=== PATIENT | male | born 1985 | race Caucasian/White ===

== ENCOUNTER 2023-11-01 20:51 | Emergency (ER) | payer OTHER, SELFPAY ==
[2023-11-01] VITALS (19 sets, daily range): BP systolic 101–113; BP diastolic 73–84; PULSE 60–81; RESP 13–20; TEMP 36.4; O2SAT 97–100
--- NOTE | ~2023-11-01 | CT_ITS ---
EXAMINATION: CT brain wo con DATE: 11/01/2023 22:43 INDICATION: Syncope TECHNIQUE: Computed tomography (CT) of the head was performed without intravenous contrast. The mA wa s adjusted according to patient size. Iterative reconstruction technique was employed. Exam dose: 60 5.33 mGy-cm total exam DLP. COMPARISON: None FINDINGS: Bilateral carotid siphon internal carotid artery calcifications are noted. No intracranial mass lesion or hemorrhage or cerebrovascular accident is detected. No midline shift o r mass effect. Normal ventricular size. Arita-white matter differentiation is normal. No subdural or epidural hematoma. Included paranasal sinuses and mastoid air cells are normally developed and aerated. No skull fracture or bone destruction is detected. IMPRESSION: Bilateral carotid siphon internal carotid artery calcifications; no other significant in tracranial abnormality Reviewed, dictated and finalized at Location [facility]. Reviewed, dictated and finalized at location A. ER OFF IMPRESSION: Bilateral carotid siphon internal carotid artery calcifications; n o other significant intracranial abnormality
--- NOTE | ~2023-11-01 | XR_ITS ---
EXAMINATION: XR chest 1V portable Exam Date/Time: 11/01/2023 21:35 DATA MANAGEMENT MANAGER HISTORY: cough Comparison: None. RESULT: Lines, tubes, and devices: None. Lungs and pleura: Clear. Cardiomediastinal silhouette: Unremarkable. Other: No acute osseous or upper abdominal finding. IMPRESSION: No acute cardiopulmonary process. Reviewed, dictated and finalized at location K. MANAGEMENT MANAGER
--- NOTE | 2023-11-01 20:56 | ECG_ITS ---
Measurements Intervals [place] Rate: 71 P: 47 MA: 176 QRS: 38 QRSD: 105 T: 36 QT: 348 QTc: 379 Interpretive Statements SINUS RHYTHM WITH SINUS ARRHYTHMIA INCOMPLETE RIGHT BUNDLE BRANCH BLOCK BASELINE ARTIFACT- V3 BORDERLINE ECG NO PREVIOUS ECG AVAILABLE FOR COMPARISON Electronically Signed On 11-02-2023 7:57:43 MAMMOGRAPHY TECHNOLOGIST by Leonidas Reyez D.O.
[2023-11-01] MEDS: SODIUM CHLORIDE 0.9% IV 1,000 ML 999 ML IV CONT (21:36)
[2023-11-01 21:48] LABS: Hematocrit 47.5 % (42.0-52.0); Hemoglobin 15.5 g/dL (14.0-18.0); Mean Corpuscular HGB Conc 32.6 g/dl (32-36); Mean Corpuscular Hemoglobin 29.4 pg (26-34); Mean Platelet Volume 10.4 fl (7.4-10.4); Platelet Count Result 150 k/mm3 (150-375); Red Blood Count 5.28 M/mm3 (4.6-6.20); Red Cell Distribution Width 14.1 % (11.5-14.5); White Blood Count 6.3 K/mm3 (4.5-10.0)
[2023-11-01 21:58] LABS: Prothrombin Time 13.1 Seconds (11.1-14.7)
[2023-11-01 21:59] LABS: Partial Thromboplastin Time 33.6 SECONDS (22.3-36.8)
[2023-11-01 22:00] LABS: Alanine Aminotransferase 31 U/L (6-50); Albumin Level 4.5 g/dL (3.5-5.1); Alkaline Phosphatase 83 U/L (38-126); Anion Gap 9 mmol/L (8-16); Aspartate Amino Transferase 28 U/L (17-59); Bilirubin,Total 0.5 mg/dL (0.2-1.3); Blood Urea Nitrogen 13 mg/dL (9-20); Calcium 9.1 mg/dL (8.4-10.2); Carbon Dioxide 26 mmol/L (22-30); Chloride 101 mmol/L (98-107); Estimated CRCL calculation 93 ml/min; Estimated Glomerular Filt Rate > 60; Glucose 102 mg/dL (65-110); Lactic Acid Reflex 0.9 mmol/L (0.7-2.0); Potassium 3.4 mmol/L (3.4-5.0); Sodium 136 mmol/L (137-145)
[2023-11-01 22:03] LABS: Appearance Urine Cloudy (Clear); Bacteria Urine None Seen /hpf; Bilirubin Urine Negative (Negative); Blood Urine Negative (Negative); Color Urine Dark Yellow (Yellow); Glucose Urine UA Negative (Negative); Hyaline Casts Urine Present /lpf; Ketones Urine 1+ mg/dL (Negative); Leukocyte Esterase Ur Negative LEU/UL (Negative); Nitrate Urine Negative (Negative); Protein Urine 2+ mg/dL (Negative); RBC Urine 0-2 /hpf (0-2); Specific Grav Ur 1.033 (1.001-1.035); Squamous Epithelial Cell Urine None seen /hpf (Few); WBC Urine 0-5 /hpf; pH Urine 5.5 (5.0-9.0)
[2023-11-01 22:04] LABS: Add Urine Microscopic? YES
[2023-11-01 22:07] LABS: Influenza A QL RT-PCR Negative (Negative); Influenza B QL RT-PCR Negative (Negative); RSV RNA, RT-PCR Negative (Negative); SARS-CoV-2 RNA PCR Positive (Negative)
[2023-11-01 22:16] LABS: Troponin I < 0.012 ng/mL (0.000-0.034)
[2023-11-01 22:19] LABS: Band Neutrophils Percent 6 % (0-6); Lymphocytes Absolute Manual 1.38 K/mm3 (1.1-4.5); Monocytes Absolute Manual 1.26 K/mm3 (0.1-0.90); Monocytes Percent Manual 20 % (3-9); Neutrophils Absolute Manual 3.65 K/mm3 (1.3-6.7); Neutrophils Percent Manual 52 % (46-73); Platelet Estimate Adequate (Adequate); Total Cells Counted 100
[2023-11-01 22:20] LABS: Schistocytes None Seen (NORMAL)
[2023-11-01 22:23] LABS: Procalcitonin 0.1 ng/mL
[2023-11-01 22:25] LABS: D Dimer 0.36 ug/mL (<0.48)
--- NOTE | 2023-11-01 23:04 | ED.GENADULT ---
HPI - General Adult General Chief complaint: Seizure Stated complaint: Seizure Time Seen by Provider: 11/01/23 21:10 History of Present Illness HPI narrative: patient is a 38-year-old gentleman who presents emergency department with chief complaint of syncopal episode. Patient reports that he is been not feeling well since yesterday and reports that he had a fever body aches patient reports that he feels as though he has a viral illness. Patient reports that his was sick fairly recently. The patient states that he has not really been eating and drinking well for the last 24 hours and reports that he was walking laid on the bed and briefly passed out. Family reports no bowel or bladder dysfunction reports no generalized shaking Related Data Allergies Allergy/AdvReac Type Severity Reaction Status Date / Time No Known Allergies Allergy Verified 11/01/23 21:03 Review of Systems Review of Systems: A 10 system review of systems was completed on the patient and is negative except for what is stated in the HPI. Nursing and ancillary documentation was reviewed. Exam Narrative: GENERAL: Well-appearing, well-nourished, and in no acute distress. HEAD: Normocephalic, atraumatic. EYES: PERRLA and EOMI. ENT: Nares clear, no rhinorrhea or epistaxis. Mucous membranes moist. NECK: Supple. CHEST: Clear to auscultation. No respiratory distress. HEART: Regular rate and rhythm. No murmur heard. Normal peripheral pulses. ABDOMEN: Soft, nontender, nondistended, normal active bowel sounds. EXTREMITIES: Normal range of motion. No edema. SKIN: Warm, dry, no rash. NEURO: No focal deficits. Alert and oriented x3. PSYCH: Normal mood and affect. Course Vital Signs Vital signs: Vital Signs Temperature 36.4 C 11/01/23 20:48 Pulse Rate 60 11/01/23 20:48 Respiratory Rate 13 11/01/23 20:48 Blood Pressure 113/78 11/01/23 20:48 Pulse Oximetry 100 11/01/23 20:48 Oxygen Delivery Room Air 11/01/23 20:48 Temperature 36.4 C 11/01/23 20:48 Pulse Rate 78 11/01/23 22:16 Respiratory Rate 18 11/01/23 22:16 Blood Pressure 101/73 11/01/23 22:16 Pulse Oximetry 97 11/01/23 21:34 Oxygen Delivery Room Air 11/01/23 21:04 Medical Decision Making MDM Narrative Medical decision making narrative: Differential diagnosis includes viral syndrome, syncopal episode, pulmonary embolism, UTI laboratory studies were obtained the patient was positive COVID-19 urinalysis showed +1 ketones electrolytes are within normal limits EKG showed no acute ischemic changes. Chest x-ray showed no focal infiltrate patient has a negative troponin negative D-dimer CT head showed no acute abnormality Vital Signs Vital Signs: Vital Signs Temperature 36.4 C 11/01/23 20:48 Pulse Rate 60 11/01/23 20:48 Respiratory Rate 13 11/01/23 20:48 Blood Pressure 113/78 11/01/23 20:48 Pulse Oximetry 100 11/01/23 20:48 Oxygen Delivery Room Air 11/01/23 20:48 Temperature 36.4 C 11/01/23 20:48 Pulse Rate 78 11/01/23 22:16 Respiratory Rate 18 11/01/23 22:16 Blood Pressure 101/73 11/01/23 22:16 Pulse Oximetry 97 11/01/23 21:34 Oxygen Delivery Room Air 11/01/23 21:04 Lab Data 11/01/23 21:42 11/01/23 21:42 Labs: Lab Results 11/01/23 11/01/23 11/01/23 Range/Units 21:27 21:42 21:47 WBC 6.3 (4.5-10.0) K/mm3 RBC 5.28 (4.6-6.20) M/mm3 Hgb 15.5 (14.0-18.0) g/dL Hct 47.5 (42.0-52.0) % MCV 90.0 (80-100) fl MCH 29.4 (26-34) pg MCHC 32.6 (32-36) g/dl RDW 14.1 (11.5-14.5) % Plt Count 150 (150-375) k/mm3 MPV 10.4 (7.4-10.4) fl Immature Gran % (Auto) Not Reportable Neut % (Auto) Not Reportable Lymph % (Auto) Not Reportable [place] % (Auto) Not Reportable Eos % (Auto) Not Reportable Baso % (Auto) Not Reportable Lymph # (Auto) Not Reportable [place] # (Auto) Not Reporta
== END 2023-11-02 00:22 | disposition home or self-care (01) ==
PROVIDERS: Emergency Provider Emergency Medicine
DX: U07.1 COVID-19 (principal); R55 Syncope and collapse; Z20.822 Contact with and (suspected) exposure to COVID-19
CPT/HCPCS: 36415; 70450; 71045; 80053; 81001; 83605; 83735; 84145; 84484; 85025; 85380; 85610; 85730; 87637; 93005; 96360; 99284; J7030

== ENCOUNTER 2025-06-17 09:59 | Emergency (ER) | payer OTHER, SELFPAY ==
--- NOTE | ~2025-06-17 | XR_ITS ---
EXAM/PROCEDURE: XR chest 2V - 06/17/2025 10:16 CDT HISTORY: 40 years old Male with cough SOB x 4 days and right chest pain TECHNIQUE: Two view(s) of the chest. COMPARISON: None available. FINDINGS: LUNGS/ PLEURA: No focal consolidation. Mild perihilar bronchial wall thickening. HEART/ MEDIASTINUM: Heart appears normal in size. BONES: No acute osseous abnormality. OTHER: Visualized upper abdomen is unremarkable. IMPRESSION: No focal consolidation. Mild perihilar bronchial wall thickening, findings suggestive of respiratory bronchiolitis. Reviewed, dictated and finalized at location N. IMPRESSION: No focal consolidation. Mild perihilar bronchial wall thickening, findings sugg estive of respiratory bronchiolitis.
--- NOTE | 2025-06-17 10:01 | ED.CHESTPAIN ---
HPI - Chest Pain General Chief Complaint: Upper Respiratory Infection Stated Complaint: Chest Pain/Side pain Time Seen by Provider: 06/17/25 10:05 Source: patient, RN notes reviewed and old records reviewed Mode of arrival: ambulatory Limitations: no limitations History of Present Illness HPI narrative: 40 year male presents to the [facility] with complaints of cough sneezing sore throat, stuffy nose. Denies fevers. Reports that he has a been more tired than normal. States that a family member he was around last week was also sick with an infection, got better in just a couple of days. No treatment prior to arrival Treatment prior to arrival: none Related Data Allergies Allergy/AdvReac Type Severity Reaction Status Date / Time No Known Allergies Allergy Verified 06/17/25 10:10 Review of Systems Review of Systems: All systems reviewed & are unremarkable except as noted in HPI and below Constitutional: Constitutional: Reports as per HPI ENT: Reports as per HPI Cardiovascular: Cardiovascular: Reports no additional cardiovascular complaints, Denies chest pain and Denies dyspnea Respiratory: Respiratory: Reports no additional respiratory complaints, Denies chest congestion, Denies cough and Denies dyspnea Musculoskeletal: Musculoskeletal: Reports no additional musculoskeletal complaints Integumentary/Breasts: Skin/Breast: Reports system reviewed and no additional complaints, except as docu PMFSH Comments At the time of my signature, I reviewed and agree with the nursing past medical, surgical, social, and family history. There is no relevant family history pertinent to the patient complaint. Exam Const: General: cooperative, healthy appearing, comfortable, no acute distress, well developed, alert and well nourished Nutritional Appearance: well nourished Orientation/consciousness: patient oriented x3 Limitations: no limitations HENMT: Head: normal to inspection Ears: hearing grossly normal bilaterally, external ears normal, TM's normal bilaterally, EAC's normal, mastoids normal and no periauricular adenopathy Mouth: Yes Normal oral and palatal mucosa present, Yes lip normal, Yes tongue normal and Yes moist mucous membranes Throat: posterior oropharynx normal, uvula midline and no uvular edema Eyes: General: appearance normal, both eyes and all related structures Alignment and Position: alignment normal Neck: Neck: normal visual inspection, full ROM, no lymphadenopathy and no meningeal signs Chest: Chest palpation & inspection: normal inspection of the chest Resp: Effort & Inspection: normal respiratory effort and able to speak in complete sentences Auscultation: clear to auscultation bilaterally, no crackles, no rales, no rhonchi and no wheezes Cardio: Rate: regular rate Skin: General skin exam: normal color and no rashes or lesions noted Neuro: General: patient oriented x3, gait normal, moves all extremities and no meningeal signs Cognition (Neuro): normal cognition Speech: normal speech Gait exam (Neuro): Normal gait present Extrem: General: normal to inspection, full ROM, capillary refill normal and normal gait Psych: Appearance: grossly normal and well kempt Mental Status: mental status grossly normal Speech and movement: Normal speech and movement present and Clear speech present Affect: normal affect Attitude: cooperative Course Course Level of Care: Express Care Visit Vital Signs Vital signs: Vital Signs Temperature 97.5 F L 06/17/25 10:06 Pulse Rate 78 06/17/25 10:06 Respiratory Rate 18 06/17/25 10:06 Blood Pressure 107/80 06/17/25 10:06 Pulse Oximetry 99 06/17/25 10:06 Oxygen Delivery Room Air 06/17/25 10:06 Temperature 97.5 F L 06/17/25 10:06 Pulse Rate 78 06/17/25 10:06 Respiratory Rate 18 06/17/25 10:06 Blood Pressure 107/80 06/17/25 10:06 Pulse Oximetry 99 06/17/25 10:06 Oxygen Delivery Room Air 06/17/25 10:06 Reviewed MDM - Chest Pain MDM Narrative Medical decision making narrative: Patient sitting in exam. Patient is nontoxic, vitals stable. Patient presents with 4 day history of URI symptoms, concern for cough and right-sided chest discomfort that is been intermittent. Flu, COVID and strep were negative. Chest x-ray showed no signs of a pneumonia, bronchitis is probably noted Patient is appropriate for outpatient treatment with close follow-up, phone numbers for primary care and stressed the importance of following up with patient. Discharge instructions reviewed with patient, as well as provided in writing per nursing staff. The instructions also include specific and strict return/GO TO THE ER as well as f/u information. All questions have been answered, and the patient deny any further questions with discharge and discharge plan. Some parts of this dictation were generated by voice recognition software and may contain typographical and/or grammatical inaccuracies. Differential Diagnosis Differential diagnosis: Likely atypical chest pain, costochondritis, chest pain and other (Bronchitis, URI) Lab Data Labs: Lab Results 06/17/25 06/17/25 Range/Units 10:23 10:34 POC Influenza A Ag Negative (Negative) POC Influenza B Ag Negative (Negative) POC SARS CoV-2 Ag Negative (Negative) POC Grp A Strep Screen Negative (Negative) Reviewed Imaging Data Radiologist's impression: EXAM/PROCEDURE: XR chest 2V - 06/17/2025 10:16 CDT HISTORY: 40 years old Male with cough SOB x 4 days and right chest pain TECHNIQUE: Two view(s) of the chest. COMPARISON: None available. FINDINGS: LUNGS/ PLEURA: No focal consolidation. Mild perihilar bronchial wall thickening. HEART/ MEDIASTINUM: Heart appears normal in size. BONES: No acute osseous abnormality. OTHER: Visualized upper abdomen is unremarkable. IMPRESSION: No focal consolidation. Mild perihilar bronchial wall thickening, findings suggestive of respiratory bronchiolitis. Critical Care Time Critical Care Time Critical Care Time: No Discharge Plan Discharge Clinical Impression: Upper respiratory infection, Viral infection, Bronchitis Patient Disposition: Home Condition: Stable Instructions: Antibiotic Form, Upper Respiratory Infection (DC), Acute Bronchitis (ED), Viral Syndrome (ED) Additional Instructions: Your rapid strep swab was negative today at [facility]. A throat culture will be sent to the laboratory for further testing. If the test is positive, you will receive a phone call within 48 hours and an appropriate antibiotic will be initiated at that time. Your rapid COVID test were negative Your rapid flu test was negative Your chest x-ray was negative for pneumonia. It did show characteristics of bronchitis or inflammation. If you are having a hard time finding a physician please call our [facility] group liaison at [phone]. Your symptoms are likely due to a viral illness, which is not treated with antibiotics. Typically viral infections last 7-10 days, can linger for couple of weeks. It is very important to treat your symptoms. Drink plenty of water, Gatorade, Pedialyte, ice pops or Jell-O. -Alternate Tylenol and Motrin per package directions for fever or pain. You can alternate every 4 hours -Antihistamine medication such as Zyrtec/Claritin/Felicia during the day can help improve symptoms. -doing daily nasal irrigations can help relieve pressure your sinuses. Things like a Neti pot -Use Flonase twice a day for 5 days then daily to help reduce the inflammation and dry up your sinuses. -You can also use Mucinex. Be sure to drink plenty of water with this medication at least 8 ounces with every dose and it is important to drink 8 to 10 glasses of water per day. Water is a natural decongestant -Eat and drink things that are easy to swallow, like tea or soup, or popsicles. -Oral rinses such as: Salt water gargles and/or may use topical anesthetic (eg. Chloraseptic spray) or lozenges to relieve dryness or throat pain). -Frequent hand washing or hand table games manager is one of the best ways to prevent spread of infection. -Using a vaporizer or humidifier at night will also help thin secretions and help with coughing up phlegm. -Follow up with primary care provider in 7-10 days if condition is not improving If you are having a hard time finding a physician please call our [facility] group liaison at [phone]. - For new or worsening symptoms go directly to the nearest ER Patient Language: Prydein[place] Prescriptions: New (DME) Aerochamber MV Spacer See Rx Instructions .Route Qty: 1 0RF Rx Instructions: As directed albuterol sulfate 90 mcg/actuation HFA aerosol inhaler 2 puff inhalation QID PRN (Reason: shortness of breath or wheezing) Qty: 6.7 0RF prednisone 50 mg tablet 50 mg PO DAILY Qty: 5 0RF Follow-up/Referrals: PHYSICIAN,COMFORT ADVISOR [Primary Care Provider, Internal Medicine] Stand Alone Forms: Work/School Release IP Time of Disposition: 11:10
[2025-06-17 10:06] VITALS: BP 107/80; PULSE 78; RESP 18; TEMP 36.4; O2SAT 99
[2025-06-17 10:24] LABS: EDSTREPNEGPOS1 Negative (Negative)
[2025-06-17 10:35] LABS: EDCOVIDSCREEN Negative (Negative)
[2025-06-17 10:36] LABS: EDINFLUASCREEN Negative (Negative); EDINFLUBSCREEN Negative (Negative)
== END 2025-06-17 11:17 | disposition home or self-care (01) ==
PROVIDERS: Emergency Provider Nurse Practitioner
DX: J06.9 Acute upper respiratory infection, unspecified (principal); B34.9 Viral infection, unspecified; J40 Bronchitis, not specified as acute or chronic; Z20.822 Contact with and (suspected) exposure to COVID-19
CPT/HCPCS: 71046; 87081; 87426; 87804; 87880; 99213; G0463

== ENCOUNTER 2025-07-12 17:48 | Emergency (ER) | payer OTHER, SELFPAY ==
--- NOTE | ~2025-07-12 | XR_ITS ---
Examination: XR chest 2V Clinical History: chest pain Comparison: 06/17/2025 Technique: PA and Lateral Findings: Cardiomediastinal silhouette normal size and configuration. Lungs clear. No acute bony abnormality. IMPRESSION: 1. No acute cardiopulmonary findings. Reviewed, dictated and finalized at location R.
--- NOTE | 2025-07-12 17:55 | ECG_ITS ---
Test Date: 2025-07-12 17:59:47 Measurements Intervals [place] Rate: 72 P: 60 FL: 155 QRS: 65 QRSD: 101 T: 59 QT: 338 QTc: 371 Interpretive Statements SINUS RHYTHM POSSIBLE RIGHT VENTRICULAR CONDUCTION DELAY [RSR (QR) IN V1/V2] No previous ECG available for comparison Electronically Signed On 07-12-2025 19:36:32 CDT by Ambrosio Harper M.D.
[2025-07-12 17:57] VITALS: BP 103/79; PULSE 84; RESP 18; TEMP 36.7; O2SAT 98
[2025-07-12 18:05] LABS: Hematocrit 45.5 % (42.0-52.0); Hemoglobin 15.0 g/dL (14.0-18.0); Immature Granulocyte Percent A 0.3 % (0-0.5); Lymphocytes Absolute Auto 3.07 K/mm3 (0.9-3.2); Mean Corpuscular HGB Conc 33.0 g/dl (32-36); Mean Corpuscular Hemoglobin 28.9 pg (26-34); Mean Corpuscular Volume 87.7 fl (80-100); Nucleated Red Blood Cells Absolute Auto 0.000 K/mm3 (0.0-0.012); Nucleated Red Blood Cells Perc 0.0 % (0.0-0.2); Platelet Count Result 216 k/mm3 (150-375); Red Blood Count 5.19 M/mm3 (4.6-6.20); White Blood Count 8.7 K/mm3 (4.5-10.0)
--- NOTE | 2025-07-12 18:11 | ED_ITS ---
HPI - Abdominal Pain General Chief Complaint: Chest Pain Stated Complaint: epigastric pain, SOB Time Seen by Provider: 07/12/25 18:11 Focused HPI: Patient is a 40-year-old male who presents to the ER with epigastric pain. He reports his symptoms started on Friday, 2 days ago. Patient reports the pain wraps around his upper abdomen. He denies any urinary symptoms, recent fevers, shortness of breath. Patient rates his pain at a 4 to 5/10. He has no medical history related to this ER visit. Patient endorses acute back pain this morning but that has since resolved. GENERAL: Well-appearing, well-nourished, and in no acute distress. HEAD: Normocephalic, atraumatic. CHEST: Clear to auscultation. ?No respiratory distress. HEART: Regular rate and rhythm.? NEURO: ?Alert and oriented x3. ABD: Negative West's sign. + BS Patient screened in triage and initial orders placed.? ?Additional care and disposition to be based upon?diagnostic testing and treatment. Related Data Allergies Allergy/AdvReac Type Severity Reaction Status Date / Time No Known Allergies Allergy Verified 06/17/25 10:10 Course Vital Signs Vital signs: Vital Signs Temperature 36.7 C 07/12/25 17:57 Pulse Rate 84 07/12/25 17:57 Respiratory Rate 18 07/12/25 17:57 Blood Pressure 103/79 07/12/25 17:57 Pulse Oximetry 98 07/12/25 17:57 Oxygen Delivery Room Air 07/12/25 17:57 Temperature 36.7 C 07/12/25 17:57 Pulse Rate 84 07/12/25 17:57 Respiratory Rate 18 07/12/25 17:57 Blood Pressure 103/79 07/12/25 17:57 Pulse Oximetry 98 07/12/25 17:57 Oxygen Delivery Room Air 07/12/25 17:57 MDM - Abdominal Pain Lab Data 07/12/25 18:00 07/12/25 18:00 Labs: Lab Results 07/12/25 Range/Units 18:00 WBC 8.7 (4.5-10.0) K/mm3 RBC 5.19 (4.6-6.20) M/mm3 Hgb 15.0 (14.0-18.0) g/dL Hct 45.5 (42.0-52.0) % MCV 87.7 (80-100) fl MCH 28.9 (26-34) pg MCHC 33.0 (32-36) g/dl RDW 13.7 (11.5-14.5) % Plt Count 216 (150-375) k/mm3 MPV 10.0 (7.4-10.4) fl Immature Gran % (Auto) 0.3 (0-0.5) % Neut % (Auto) 53.4 (45.5-73.1) % Lymph % (Auto) 35.4 (18.3-44.2) % [place] % (Auto) 8.6 H (2.6-8.5) % Eos % (Auto) 1.8 (0-4.4) % Baso % (Auto) 0.5 (0.2-1.2) % Lymph # (Auto) 3.07 (0.9-3.2) K/mm3 [place] # (Auto) 0.8 H (0.1-0.6) K/mm3 Eos # (Auto) 0.2 (0-0.3) K/mm3 Baso # (Auto) 0.0 (0.0-0.1) K/mm3 Abs Immat Gran (auto) 0.03 (0.00-0.031) K/mm3 Absolute Neuts (auto) 4.6 (1.3-6.7) K/mm3 Absolute Nucleated RBC 0.000 (0.0-0.012) K/mm3 Nucleated RBC % 0.0 (0.0-0.2) % PT 12.9 (11.1-14.7) Seconds INR 1.0 APTT 31.5 (22.3-36.8) Seconds Sodium 136 L (137-145) mmol/L Potassium 3.6 (3.4-5.0) mmol/L Chloride 102 (98-107) mmol/L Carbon Dioxide 26 (22-30) mmol/L Anion Gap 8 (4-12) mmol/L BUN 17 (9-20) mg/dL Creatinine 0.88 (0.7-1.3) mg/dL Estim Creat Clear Calc 93 ml/min Estimated GFR > 60 (59 - ) Glucose 120 H (65-110) mg/dL Calcium 9.1 (8.4-10.2) mg/dL Total Bilirubin 0.3 (0.2-1.3) mg/dL AST 24 (17-59) U/L ALT 28 (6-50) U/L Alkaline Phosphatase 87 (38-126) U/L Troponin I < 0.012 (0.000-0.034) ng/mL Total Protein 7.2 (6.3-8.2) g/dL Albumin 4.4 (3.5-5.1) g/dL Lipase 61 (23-300) U/L Imaging Data Radiologist's impression: ITS Impressions Chest X-Ray 07/12/25 18:13 IMPRESSION: 1. No acute cardiopulmonary findings. Discharge Plan Discharge Clinical Impression: Chest pain Patient Disposition: Elopement After Seen by Prov Patient Language: Welsh Prescriptions: No Action (DME) Aerochamber MV Spacer See Rx Instructions .Route Qty: 1 0RF Rx Instructions: As directed albuterol sulfate 90 mcg/actuation HFA aerosol inhaler 2 puff inhalation QID PRN (Reason: shortness of breath or wheezing) Qty: 6.7 0RF prednisone 50 mg tablet 50 mg PO DAILY Qty: 5 0RF Follow-up/Referrals: PHYSICIAN,SALES OPERATIONS MANAGER [Primary Care Provider, Internal Medicine]
[2025-07-12 18:18] LABS: Alanine Aminotransferase 28 U/L (6-50); Albumin Level 4.4 g/dL (3.5-5.1); Alkaline Phosphatase 87 U/L (38-126); Anion Gap 8 mmol/L (4-12); Aspartate Amino Transferase 24 U/L (17-59); Bilirubin,Total 0.3 mg/dL (0.2-1.3); Blood Urea Nitrogen 17 mg/dL (9-20); Calcium 9.1 mg/dL (8.4-10.2); Carbon Dioxide 26 mmol/L (22-30); Chloride 102 mmol/L (98-107); Estimated CRCL calculation 93 ml/min; Estimated Glomerular Filt Rate > 60; Glucose 120 mg/dL (65-110); Lipase 61 U/L (23-300); Potassium 3.6 mmol/L (3.4-5.0); Sodium 136 mmol/L (137-145); Total Protein 7.2 g/dL (6.3-8.2)
[2025-07-12 18:21] LABS: INR 1.0; Prothrombin Time 12.9 Seconds (11.1-14.7)
[2025-07-12 18:22] LABS: Partial Thromboplastin Time 31.5 Seconds (22.3-36.8)
[2025-07-12 18:30] LABS: Troponin I < 0.012 ng/mL (0.000-0.034)
--- NOTE | 2025-07-12 21:06 | PC.NURSE ---
no answer at triage
--- OUTSIDE RECORDS SUMMARY | 2025-07-12 21:26 | XMS_ITS | Clinical Summary ---
Author Organization [facility] Address [address] [place] [id number] Care Team Providers Care Rent Collector Name Role Phone No, Physician Primary Care Provider Allergies No known active allergies Medications acetaminophen (TYLENOL) 500 mg tablet Take 1-2 tablets (500-1,000 mg total) by mouth every 6 (six) hours as needed for pain 30 tablet 1 Active ibuprofen (ADVIL,MOTRIN) 600 mg tablet Take 1 tablet (600 mg total) by mouth every 6 (six) hours as needed for pain 30 tablet 1 Active guaiFENesin (ROBITUSSIN) syrup 100 mg/5 mLIndications:C ough Take 5-10 mL (100-200 mg total) by mouth every 4 (four) hours as needed for cough 60 mL 1 Active albuterol HFA (PROVENTIL HFA,VENTOLIN HFA,PROAIR HFA) 90 mcg/actuation inhaler Inhale 2 puffs every 4 (four) hours as needed for wheezing or shortness of breath 18 g 1 Active Active Problems No known active problems Social History Tobacco Use Types Packs/Day Years Used Date Smoking Tobacco: Former Smokeless Tobacco: Never Tobacco Cessation:Counseling Given: No AUDIT-C Answer Date Recorded Q1: How often do you have a drink containing alc ohol? 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 Gender Identity Not on file Sexual Orientation Not on file Obstetrics History Last Filed Vital Signs Vital Sign Reading Time Taken Comments Blood Pressure 111/78 10/07/2021 3:25 PM CAR SEAT UPHOLSTERER Pulse 64 10/07/2021 3:25 PM CAR SEAT UPHOLSTERER Temperature 36.6 C (97.9 F) 10/07/2021 3:25 PM CAR SEAT UPHOLSTERER Respiratory Rate 14 10/07/2021 3:25 PM CAR SEAT UPHOLSTERER Oxygen Saturation 94% 10/07/2021 3:25 PM CAR SEAT UPHOLSTERER Inhaled Oxygen Concentration - - Weight 68 kg (150 lb) 10/07/2021 3:25 PM CAR SEAT UPHOLSTERER Height 172.7 cm (5' 8) 10/07/2021 3:25 PM CAR SEAT UPHOLSTERER Body Mass Index 22.81 10/07/2021 3:25 PM CAR SEAT UPHOLSTERER Plan of Treatment Not on file Insurance [facility] [facility] [place] [id number] [facility] [place] [address] Care Teams Rent Collector Relationship Specialty Start Date End Date No, Physician PCP - General 11/04/20
== END 2025-07-12 22:30 | disposition left against medical advice (07) ==
LOC: ANHED 21:23
PROVIDERS: Emergency Medicine; Emergency Provider Registered Nurse
DX: R07.9 Chest pain, unspecified (principal); R06.02 Shortness of breath; R10.13 Epigastric pain
CPT/HCPCS: 36415; 71046; 80053; 83690; 84484; 85025; 85610; 85730; 93005; 99284